=== PATIENT | male | born 1970 | race Caucasian/White ===

== ENCOUNTER 2017-12-26 08:30 | Emergency (ER) | payer OTHER ==
[~2017-12-26] VITALS: Ht 188 cm; Wt 132.0 kg
[~2017-12-26 08:30] MED LIST: ATR25 PO; LRT5 PO; PRED20TA PO
[2017-12-26 08:46] VITALS: PULSE 82; TEMP 36.7; O2SAT 97; Ht 188 cm; Wt 132.0 kg
[2017-12-26] MEDS ORDERED: ASPI81TA28 PO (08:58)
[2017-12-26] MEDS ORDERED: GLC/500 PO (08:58)
[2017-12-26] MEDS ORDERED: LISI-461 PO (08:58)
[2017-12-26] MEDS ORDERED: CRS/10 PO (08:58)
--- NOTE | 2017-12-26 09:17 | DIAGNOSTIC IMAGING REPORT ---
L KNEE 3 VIEWS CLINICAL HISTORY: left anterior knee pain gradually worsening x 2 weeks COMPARISON: None. DISCUSSION: Small osteophyte projecting from the superior aspect of the patella. No significant joint effusion. All cortical margins are well-corticated. Medial lateral compartments are intact. Patellofemoral joint is unremarkable. There is no evidence for soft tissue swelling. IMPRESSION: Small osteophyte projecting from the superior patella. Otherwise negative study. The above report was generated using voice recognition software. It may contain grammatical, syntax or spelling errors. Electronically signed by: Wild Adames M.D. 12/26/2017 9:16 AM Dictated Date/Time: 12/26/2017 9:15 AM
--- NOTE | 2017-12-26 09:34 | EMERGENCY ROOM VISIT NOTE ---
History Report prepared by Demetris: Elsie Haas Under the Supervision of: Dr. Sean Tang M.D. First contact with patient: 08:35 Chief Complaint: KNEEPAIN Stated Complaint: L KNEE PAIN History of Present Illness The patient is a 47 year old male who presents to the Emergency Room with complaints of worsening left knee pain for the past few weeks. 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 He is also on his hands and knees and states that he does where knee pads when he is on his knees. He states that his pain at rest is mild and rates his current pain as a 2/10 in severity. His pain worsens with standing, walking, kneeling, and moving. The patient reports some numbness occasionally going down into his lower leg. He has been using Advil and ice to control his pain. The patient denies any pain in his right knee. He denies weakness, fevers, chills, nausea, vomiting, back pain, urinary symptoms, and any previous injury to the left knee. Source of History: patient Onset: a few weeks ago Position: knee (left) Symptom Intensity: 2/10 Timing: worsening Modifying Factors (Worsening): movement, other (standing/walking/kneeling) Modifying Factors (Relieving): ibuprofen, ice Associated Symptoms: + numbness, No fevers, No chills, No nausea, No vomiting, No back pain, No urinary symptoms, No weakness Review of Systems See HPI for pertinent positives & negatives. A total of 6 systems reviewed and were otherwise negative. Past Medical & Surgical Medical Problems: (1) DM w/o complication type II (2) Hx of penicillin allergy (3) Obstructive sleep apnea, adult Family History No pertinent history stated. Social History Marital Status: Housing Status: lives with significant other Occupation Status: employed Current/Historical Medications Scheduled Aspirin (Aspirin Ec), 81 MG PO DAILY Lisinopril (Zestril), 10 MG PO DAILY Metformin Hcl (Glucophage), 500 MG PO BID Prednisone (Prednisone Tab), 0 PO DAILY Rosuvastatin Calcium (Crestor), 10 MG PO DAILY Allergies Coded Allergies: Penicillins (Verified Allergy, Mild, 11/12/09) Physical Exam Vital Signs Date Time Temp Pulse Resp B/P (MAP) Pulse Ox O2 Delivery O2 Flow Rate FiO2 12/26/17 10:18 146/88 12/26/17 08:46 36.7 82 18 134/93 97 Room Air Physical Exam GENERAL: Patient is well appearing and in minimal distress. EYES: No scleral icterus, unremarkable pupils. NECK: No masses appreciated, no meningismus, trachea is midline. RESPIRATORY: No dyspnea. Clear to auscultation and equal bilaterally. No wheeze , no rhonchi. CARDIOVASCULAR: Regular rate and rhythm. No murmurs, rubs, gallops appreciated. BACK: No midline tenderness, no CVA tenderness EXTREMITIES: Tender to palpation of anterior left knee, specifically over patella and patellar tendon. He has mild increase in pain with anterior drawer and varus stress testing but no laxity, no erythema, no effusion. NVI distally. NEUROLOGIC: Alert and oriented, no acute motor or sensory deficits, no focal weakness, cranial nerves grossly intact. SKIN: No rash, no jaundice, no diaphoresis. Medical Decision & Procedures ER Provider Diagnostic Interpretation: Radiology results and stated below per my review and radiologist interpretation: L KNEE 3 VIEWS CLINICAL HISTORY: left anterior knee pain gradually worsening x 2 weeks COMPARISON: None. DISCUSSION: Small osteophyte projecting from the superior aspect of the patella. No significant joint effusion. All cortical margins are well-corticated. Medial lateral compartments are intact. Patellofemoral joint is unremarkable. There is no evidence for soft tissue swelling. IMPRESSION: Small osteophyte projecting from the superior patella. Otherwise negative study. The above report was generated using voice recognition software. It may contain grammatical, syntax or spelling errors. Electronically signed by: Wild Adames M.D. 12/26/2017 9:16 AM Dictated Date/Time: 12/26/2017 9:15 AM Laboratory Results Test 12/26/17 08:56 Bedside Glucose 120 mg/dl (70-99) Laboratory results as reviewed by me. Medications Administered Medications (Trade) Dose Ordered Sig/Clare Route Start Time Stop Time Status Last Admin Dose Admin Prednisone (PredniSONE TAB) 60 mg NOW STAT PO 12/26/17 09:52 12/26/17 09:53 DC 12/26/17 10:11 60 MG ED Course 0839: The patient was evaluated in room B6. A complete history and physical exam was performed. 0946: I reassessed the patient at this time. He is feeling better and resting comfortably. I discussed the results and treatment plan with the patient. He will monitor his blood sugars closely. We discussed limiting NSAIDs. He declined any stronger pain medications. I answered all pertaining questions that he had. He expressed understanding and verbalized agreement. The patient will be discharged home. 0952: Prednisone 60 mg PO Medical Decision Differential: Fracture, Dislocation, Cellulitis, Septic Joint, Ligamentous Injury, Effusion, DVT, Bursitis, Tendonitis, amongst other pathologies entertained. 47 yr old male with left anterior knee pain with TTP. Exam consistent with tendonitis though bursitis could be issue as well. No septic joint nor significant effusion. No overlying cellulitis. Imaging without fx/dislocation though there is that bone spur. No evidence of DVT. Looks well and no distress otherwise. Declines pain meds which seems reasonable. BSG mildly elevated though not significantly. Seems reasonable treating PO steroids with close monitoring sugars. Reviewed plan to RTED if worsening other issues arise. Suggested follow up with Ortho for further evaluation. Medication Reconcilliation Current Medication List: was personally reviewed by me Blood Pressure Screening Patient's blood pressure: Elevated blood pressure Blood pressure disposition: Elevated BP felt to be situational Impression Primary Impression: Patellar tendinitis, left knee Scribe Attestation The scribe's documentation has been prepared under my direction and personally reviewed by me in its entirety. I confirm that the note above accurately reflects all work, treatment, procedures, and medical decision making performed by me. Departure Information Dispostion Home / Self-Care Prescriptions Prednisone (Prednisone Tab) 20 Mg Tab 0 PO DAILY, #17 TAB 3 TABS DAILY FOR 2 DAYS, THEN 2 TAB DAILY FOR 3 DAYS, THEN 1 TAB DAILY FOR 3 DAYS, Then 1/2 TAB DAILY FOR 3 DAYS. Prov: Sean Tang M.D. 12/26/17 Referrals Jeffry George M.D. (PCP) Alex Hernandez D.O. Forms HOME CARE DOCUMENTATION FORM, IMPORTANT VISIT INFORMATION Patient Instructions My [facility] Additional Instructions This is likely a Tendonitis but may have some Bursitis as well. Rest the knee and avoid lifting, stairs, and kneeling when possible. Monitor your blood sugars closely. Follow up with Orthopedics for further evaluation. Return if increased pain, swelling, fevers, redness or other concerns. Use Tylenol as needed for pain and Motrin sparingly.
[2017-12-26] MEDS ORDERED: PRED20TA2 PO (09:55)
[2017-12-26 10:18] VITALS: BP 146/88
== END 2017-12-26 10:19 | disposition home or self-care (01) ==
LOC: C.EDB 08:34
DX: M76.52 Patellar tendinitis, left knee (principal); M25.762 Osteophyte, left knee; E11.9 Type 2 diabetes mellitus without complications; G47.33 Obstructive sleep apnea (adult) (pediatric); Z79.899 Other long term (current) drug therapy; Z88.0 Allergy status to penicillin

== ENCOUNTER 2024-05-15 06:47 | Observation (INO) ==
--- OUTSIDE RECORDS SUMMARY | 2024-05-15 06:50 | External Medical Summary | Summary of Care ---
Author Name Unknown Organization [facility] Address [address] [place] [address] Phone [phone] Care Team Providers Care Floor Broker Name Role Phone Nacho Little MD Primary Care Provider [phone] Reason for Visit * Reason Comments eRx-Medication Refill Encounter Details Date Type Department Care Team (Late st Contact Info) Description 04/16/2024 Refill [facility] [address] [place] [address] Nacho Little MD [address] [place] [address] Dyslipidemia, goal LDL below 100 Allergies Active Allergy Reactions Criticality Noted Date Comments Penicillins 02/04/2001 documented as of this encounter (statuses as of 04/17/2024) Medications Medication Sig Dispensed Refills Start Date End Date Status ZuznowTOUCH ULTRA SYSTEM W/DEVICE KITIndications:DM type 2, goal A1c below 7 Use up to four times a day as directed 1 Kit 0 04/05/2011 Active ONETOUCH ULTRA BLUE STRPIndications:D M type 2, goal A1c below 7 Use up to four times a day as directed 100 Strip 11 04/05/2011 Active ONETOUCH ULTRASOFT LANCETS MISCIndications:D M type 2, goal A1c below 7 Use up to four times a day as directed 1 Box 11 04/05/2011 Active ASPIRIN 81 MG PO CHEW One chewable by mouth once a day with food 100 Tab 5 04/26/2011 Active metoprolol succinate XL (TOPROL XL) 50 MG TB24 Take 1 Tablet by mouth in the morning. 02/17/2020 Active Lisinopril 10 MG Oral Tablet (Prinivil) TAKE 1 TABLET DAILY 90 Tablet 1 04/02/2023 Active Ozempic (0.25 or 0.5 MG/DOSE) 2 MG/3ML Solution Pen-injector (Semaglutide(0.25 or 0.5MG/DOS)) INJECT 0.5 MG UNDER THE SKIN ONCE A WEEK 9 mL 1 02/12/2024 Active metFORMIN HCl ER 500 MG Oral Tablet Extended Release 24 Hour (Glucophage XR)Indications:Ty pe 2 diabetes mellitus with hemoglobin A1c goal of less than 7.0% (HCC) TAKE 2 TABLETS DAILY IN THE MORNING 02/12/2024 Active Allopurinol 100 MG Oral Tablet (Zyloprim)Indicat ions:Gout, unspecified cause, unspecified chronicity, unspecified site TAKE 1 TABLET IN THE MORNING 90 Tablet 1 03/04/2024 Active Rosuvastatin Calcium 10 MG Oral Tablet (Crestor)Indicati ons:Dyslipidemia, goal LDL below 100 TAKE 1 TABLET IN THE MORNING 90 Tablet 3 04/17/2024 Active Rosuvastatin Calcium 10 MG Oral Tablet (Crestor)Indicati ons:Dyslipidemia, goal LDL below 100 TAKE 1 TABLET IN THE MORNING 90 Tablet 3 04/24/2023 04/17/2024 Discontinued documented as of this encounter (statuses as of 04/17/2024) Active Problems Problem Noted Date Diagnosed Date Severe obstructive sleep apnea 04/07/2014 Overview: 11/2013 - CPAP 11 cwp 06/2013 HST - AHI 32/hr Care Plus HTN, goal below 140/90 02/24/2014 Dyslipidemia, goal LDL below 100 04/26/2011 Type 2 diabetes mellitus wit h hemoglobin A1c goal of less than 7.0% 04/05/2011 Overview: ICD-10 update of inactive term documented as of this encounter (statuses as of 04/17/2024) Resolved Problems Problem Noted Date Diagnosed Date Resolved Date Abnormal results of liver function studies 04/26/2011 03/06/2019 documented as of this encounter (statuses as of 04/17/2024) Immunizations Name Administration Dates Next Due Pneumococcal Conjugate Vaccine, 20-valent (Prevn ar20) 08/13/2023 Pneumococcal Polysaccharide PPV23 (Pneumovax) TDAP, Age 7 and older, IM (Adacel) 07/14/2011 documented as of this encounter Social History Tobacco Use Types Packs/Day Years Used Date Smoking Tobacco: Never Smokeless Tobacco: Never Alcohol Use Standard Drinks/Week Comments Yes 0 (1 standard drink = 0.6 oz pur e alcohol) occ PHQ-2 Answer Date Recorded PHQ Adult Total Score 0 02/12/2024 Hunger Vital Sign Answer Date Recorded Within the past 12 months, y ou worried that your food would run out before you got the money to buy more. Never true 02/12/20 24 Within the past 12 months, t he food you bought just didn't last and you didn't have money to get more. Never true 02/12/2024 Childcare Answer Date Recorded Do you feel overwhelmed with taking care of a child, family member or friend? No 02/12/2024 Does your family need help f inding childcare? (Household - for ages 0-17 years) Not on file 02/12/2024 Clothing Answer Date Recorded Have you been unable to get clothing when it was really needed? No 02/12/2024 Is your family able to get c lothes or diapers when needed? (Household - for ages 0-17 years) Not on file 02/12/2024 Personal Safety Answer Date Recorded Do you feel unsafe or have concerns for your saf ety? No 02/12/2024 Do you have concerns for you r family's safety? (Household - for ages 0-17 years) Not on file 02/12/2024 Utilities Answer Date Recorded Do you have trouble paying y our heating, water, or electric bill? No 02/12/2024 Is your family able to pay t he heat, water, or electric bill? (Household - for ages 0-17 years) Not on file 02/12/2024 Does your family have access to good internet? (Household - for ages 0-17 years) Not on file 02/12/2024 Employment Status Answer Date Recorded Are you unemployed or without regular income? No 02/12/2024 Does the household have a re gular source of income? (Household - for ages 0-17 years) Not on file 02/12/2024 Social Connections Answer Date Recorded How often do you feel lonely or isolated from th ose around you? Never 02/12/2024 Financial Resource Strain Answer Date R ecorded Do you have any trouble payi ng for your medications, or do you think you might in the future? No 02/12/2024 Does your family have troubl e paying for medicine? (Household - for ages 0-17 years) Not on file 02/12/2024 Transportation Needs Answer Date Record ed READ ONLY Do you have troubl e getting a ride to medical visits or work? Never True 02/12/2024 Does your family have a hard time getting a ride to doctors visits? (Household - for ages 0-17 years) Not on file 02/12/2024 Has lack of transportation k ept you from medical appointments, meetings, work, or from getting things needed for daily living? Check all that apply. (Adult - for ages 18 years and over) Not on file 02/12/2024 Do you (or your family) have trouble finding or paying for a ride (transportation)? (Household - for ages 0-17 years) Not on file 02/12/2024 Housing Stability Answer Date Recorded Do you currently live in a s helter or have no steady place to sleep at night? No 02/12/2024 READ ONLY Do you think you a re at risk of becoming homeless? No 02/12/2024 Does your family worry about paying for your home or becoming homeless? (Household - for ages 0-17 years) Not on file 0 02/12/2024 Are you homeless or worried that you might be in the future? (Adult - for ages 18 years and over) Not on file Are you (or your family) isabela eless or worried that you might be in the future? (Household - for ages 0-17 years) Not on file Food Insecurity Answer Date Recorded Do you need food for this week? No 02/12/2024 Are you able to get enough f ood for your family? (Household - for ages 0-17 years) Not on file 02/12/2024 Does your family need food t his week? (Household - for ages 0-17 years) Not on file 02/12/2024 Do you always have enough fo od for your family? (Household - for ages 0-17 years) Not on file 02/12/2024 Sex and Gender Information Value Date Recorded Sex Assigned at Male 02/12/2024 5:42 PM EDT Gender Identity Male 02/12/2024 5:42 PM EDT Sexual Orientation Straight 03/06/2019 7: 53 AM EDT Job Start Date Occupation Industry Not on file Not on file Not on file documented as of this encounter Miscellaneous Notes * Telephone Encounter - Narcisa Park RPh - 04/17/2024 7:59 AM EDTSigned Prescriptions: Disp Refills Rosuvastatin Calcium 10 MG Oral Tablet (Cr*90 Tab*3 Sig: TAKE 1TABLET IN THE MORNINGAuthorizing Provider: NACHO LITTLE User: NARCISA PARK--- documented in this encounter Plan of Treatment Upcoming Encounters Date Type Department Care Team (Late st Contact Info) Description 08/26/2024 6:20 PM EST Office Visit [facility] [address] [place] [address] Nacho Little MD [address] [place] [address] Scheduled Procedures Name Priority Associated Diagnoses Date/Ti me COLONOSCOPY FLEXIBLE PROXIMAL DIAGNOSTIC Recall History of colon polyps Health Maintenance Due Date Last Done Comments HIV Screening 1985 Hepatitis B Vaccine (1 of 3 - 19+ 3-dose series) 1989 Cologuard 2015 Fecal Occult Blood Test 2015 Sigmoidoscopy 2015 Zoster Vaccines (1 of 2) 2020 DTaP,Tdap,and Td Vaccines (2 - Td or Tdap) 07/14/2021 07/14/2011 B-12 01/19/2022 01/19/2021, 11/26/2019 Diabetic Foot Exam 02/15/2023 02/15/2022, 1 11/22/2019, 11/27/2019, Additional history exists COVID-19 Vaccine (3 - season) 2023 12/27/2020, 12/06/2020 Influenza Vaccine (FLU shot) (#1) 2024 HbA1c 08/02/2024 02/01/2024, 11/0 12/2022, 02/06/2023, Additional history exists Colonoscopy 11/24/2024 11/24/2019, 11/08, 11/13/2014, Additional history exists Colorectal Cancer Screening 11/24/2024 Diabetic Eye Exam 12/23/2024 12/24/2023, , 01/20/2021, Additional history exists Albumin/Creatinine Ratio 01/31/2025 024, 02/06/2023, 02/13/2022, Additional history exists GFR 01/31/2025 02/01/2024, 110 12/2022, 02/06/2023, Additional history exists Depression Screening 02/11/2025 02/12/2024 Lipid Panel 01/31/2029 02/01/2024, 050 11/2022, 2021, Additional history exists RETIRED - COLONOSCOPY-EVERY 5 YRS AGES 18-100 Discontinued 11/24/2019, 11/24/2019, 11/13/2014, Additional history exists Pneumococcal Vaccine: Pediatrics (0 to 5 Years) and At-Risk Patients (6 to 64 Years) Completed 08/13/2023, 04/05/2011 HPV (Gardasil) Vaccine Aged Out No lo nger eligible based on patient's age to complete this topic MENINGOCOCCAL (MENACTRA/MENVEO) Aged Out No longer eligible based on patient's age to complete this topic documented as of this encounter Medical Devices Not on filedocumented as of this encounter Visit Diagnoses Diagnosis Dyslipidemia, goal LDL below 100 Other and unspecified hyperlipidemia documented in this encounter Care Teams Floor Broker Relationship Specialty Start Date End Date Nacho Little MD [address] [place] [address] PCP - General Family Medicine 03/06/19 documented as of this encounter
--- NOTE | 2024-05-15 07:59 | Pre Anesthesia Assessment ---
Date of Service May 15, 2024 Pre Sedation Assessment Vital Signs Temp Pulse Resp BP Pulse Ox O2 Del Method 05/15/24 07:11 36.8 C 75 14 149/110 H 97 Room Air Cardiovascular + regular rate and + regular rhythm Respiratory + respiratory effort normal Pre-Sedation Airway Assessment Smoking Status: Never smoker Hx Sleep Apnea: No Hx Difficult Intubation: No Short, Thick Neck: No Thyromental Distance: > or= 3.5 Finger Breadths Oral Cavity: + WNL Mallampati Class: II ASA: ASA3 NPO Status Date of Last Intake of Fluids: 05/15/24 Time of Last Intake of Fluids: 06:00 Date of Last Intake of Solid Food: 05/14/24 Time of Last Intake of Solid Foods: 21:00 Procedure Planning Contraindications for Sedation: none Current Medications Reviewed: Yes Notes The planned sedation has been discussed with the patient. Informed Consent was obtained. I have identified the patient, determined the appropriateness of sedation and have assessed the patient immediately prior to the procedure. All medicine(s) and interventions are by my order.
--- NOTE | 2024-05-15 08:02 | History & Physical Report ---
Date of Service May 15, 2024 Assessment & Plan (1) Cardiomyopathy: (2) LBBB (left bundle branch block): Plan 1. Cardiomyopathy: The patient has a nonischemic cardiomyopathy and an ejection fraction less than 35%. This is despite guideline directed medical therapy. He has not had myocardial infarction in the past 40 days or revascularization in the past 90 days. He is [place] heart Association class 2-3 symptoms. Anticipated longevity greater than 1 year. Therefore a good candidate for an ICD as primary prevention against sudden cardiac . Also left bundle branch block morphology on his EKG with QRS duration greater than 150 milliseconds. This places him in a category of patients he would benefit from cardiac resynchronization therapy. Will plan a Bi V ICD. History of Present Illness Chief Complaint: cardiomyopathy Primary Care Provider: Jeffry George MD Patient is a 53 year old gentleman with a history of a nonischemic cardiomyopathy and left bundle-branch block. Due to persistent symptoms and persistently low EF he was advised to undergo implantation of biventricular ICD. Allergies Allergy/AdvReac Type Severity Reaction Status Date / Time Penicillins Allergy Unknown PT DOESN'T Verified 05/15/24 07:29 KNOW/RXN CHILD OR Home Medications Medication Instructions Recorded Confirmed Type aspirin 81 mg tablet,delayed 81 mg PO QAM 12/09/19 05/15/24 History release rosuvastatin 10 mg tablet (Crestor) 10 mg PO HS 12/09/19 05/15/24 History metformin 500 mg tablet 2,000 mg PO QAM 12/10/19 05/15/24 History coenzyme Q10 100 mg capsule 200 mg PO QAM 08/15/22 05/15/24 History (CoQ-10) semaglutide [Ozempic] subcut .WEEKLY 09/14/23 04/07/24 History lisinopril 40 mg tablet 40 mg PO QAM #90 tabs 10/11/23 05/15/24 Rx metoprolol succinate 200 mg 200 mg PO QAM #90 tabs 10/11/23 05/15/24 Rx tablet,extended release 24 hr Past Med/Surg History Problem List LBBB (left bundle branch block) Cardiomyopathy Scalp cyst (08/18/22) Scalp Cysts Excision Times 3 (2.5 cm, 1 cm, 1 cm) - Mookie Mistry DO FACS Encounter for pre-operative examination DM w/o complication type II (Chronic) Hx of penicillin allergy (Chronic) Hypokalemia (Acute) Hyponatremia (Acute) Dyspnea on exertion Sleep apnea CPAP Medical History History of colon polyps Pilar cyst of scalp CAD (coronary artery disease) Type 2 diabetes mellitus Dyslipidemia Cardiomyopathy LBBB (left bundle branch block) Hypertension Obstructive sleep apnea, adult Surgical History (Updated 09/04/22 @ 11:26 by Mookie Mistry DO, JOSE) History of cardiac cath 2-3 YR AGO/LBBB...5% [facility] ([facility]) NO STENT(S) Hx of colonoscopy Family History Father Diabetes Heart disease Stroke Sister Family history of colonic polyps Denies family history of Ovarian cancer Prostate cancer Breast cancer Colorectal cancer Lung disease Social History (Updated 07/21/22 @ 10:49 by Luz Maria Hernandez RN) Smoking Status: Never smoker Do You Dip or Chew Tobacco: No; Hx Alcohol Use: Yes Alcohol type: beer, wine and hard liquor Hx Substance Use: No Preferred Language: Georgian Communication Ability: Effective Windows Phone Developer Required: No Beliefs That Will Affect Care: None marital status: Current Living Situation: Spouse current occupational status: employed current occupation: self How many Children do You have: 1 Feels Safe at Home: Yes Diet: diabetic during the past year weight has: remained stable Assistive Devices: Contacts, CPAP and Glasses Review of Systems Review of Systems: Per HPI Physical Exam Physical Exam: The patient is alert and oriented. Mood and affect appeared normal. He answered all questions appropriately. HEENT: Pupils are equal and reactive to light and accommodation. Extraocular movements are intact. The sclerae are anicteric. Neuro: Cranial nerves intact Lungs: Normal respiratory effort Cardiac: Heart demonstrates a regular rate and rhythm. Pulses: The patient has palpable radial pulses bilaterally that are equal in intensity Extremities: There was no evidence of hypoperfusion. There is no cyanosis or clubbing. There is no edema. Skin: I did not appreciate any rashes on examination today. Results & Data Results & Data Vital Signs (Past 12 Hours) Vital Signs Temp Pulse Resp BP Pulse Ox O2 Del Method 05/15/24 07:11 36.8 C 75 14 149/110 H 97 Room Air
[2024-05-15] MEDS: VANCOMYCIN HCL 1000MG/20ML VIAL ONE (09:22)
[2024-05-15] MEDS: BUPIVACAINE 0.25% PF 30 ML VIAL ONE (09:22)
[2024-05-15] MEDS: WATER, STERILE FOR INJ 10 ML VIAL ONE (09:22)
[2024-05-15] MEDS: LIDOCAINE 1% LOCAL 20 ML VIAL ONE (09:22)
[2024-05-15] MEDS: ceFAZolin 330 MG/ML 1 GM VIAL ONE (09:23)
[2024-05-15] MEDS: MIDAZOLAM HCL 5 MG/ML 1 ML VIAL ONE (09:24)
[2024-05-15] MEDS: fentaNYL citrate PF 100 MCG/2 ML VIAL ONE ×2 (09:24→09:29)
[2024-05-15] MEDS: diphenhydrAMINE 50 MG/ML VIAL ONE (09:25)
--- NOTE | 2024-05-15 09:34 | Post Anesthesia Assessment ---
Date of Service May 15, 2024 Post Sedation Assessment Vital Signs Temp Pulse Resp BP Pulse Ox O2 Del Method 05/15/24 07:11 36.8 C 75 14 149/110 H 97 Room Air Recovery Score Activity: Moves 4 extremities Respiration: Deep Breath/Cough Circulation: +/-20% PreAnes Value Consciousness: Fully Awake Oxygen Saturation: > 92% On Room Air Discharge Sedation Level of Care: Fast Track Phase II Post Sedation Plan On clinical assessment, the patient appears to have tolerated the sedation without complications. Patient is recovering as anticipated. Patient will continue to be monitored by nursing and may be discharged when sedation discharge criteria are met per below protocol. Upon Completions of procedure up to 15 minutes continue every 5 minute vital signs and the P.A.R. score; then discharge to a Phase I or Fast Track to Phase II per the following guidelines: * Discharge Patient to appropriate Phase II area if PAR is 8 or greater or return to pre- procedure baseline. The post - procedure orders will be as directed. * If PAR score is less than 8 or not return to pre-procedure baseline then patient will follow Phase I monitoring till PAR is reached for Phase II. The Phase I may be done in procedure room or may call to secure a Phase I area. * If naloxone or flumazenil are used for reversal, hold in Phase I for continued monitoring from when last reversal dose was given for a minimum of 60 minutes or longer pending the nurse and/or physician discretion of patient condition before discharge to Phase II. Please call the Sedation Physician to re-evaluate and complete post-note for discharge to Phase II area. Do NOT discharge from procedure sedation or Phase 1 until post- sedation evaluation note is complete by procedure /sedation MD Sedation Discharge Instructions to be given to the patient at discharge to home.
--- NOTE | 2024-05-15 09:35 | Electrophysiology Report ---
Date of Service May 15, 2024 Electrophysiology Procedure Electrophysiology Procedure Report Procedure performed: Implantation of biventricular ICD Staff shadowgraph scale operator: Patrice Craft MD Indication: The patient is a 53-year-old gentleman with a longstanding history of a nonischemic cardiomyopathy. Has an ejection fraction less than 35% despite guideline medical therapy. [place] heart Association class 2 symptoms. No revascularization in the past 90 days normal cardial infarction past 40 days. He has anticipated longevity greater than 1 year. Based on this information was felt to be a good candidate for an ICD for primary prevention of sudden cardiac . Additionally, he has left bundle branch block morphology on his EKG with a QRS duration greater than 150 milliseconds. This puts him in a category patient to benefit from LAB REP. Procedure detail: The patient was informed the risks benefits and alternatives to the intended procedure. He understood which proceed. He was taken to the electrophysiology suite in a fasting state. Conscious sedation was administered per protocol and the patient was monitored electrocardiographically throughout today's procedure. Preoperative antibiotic was administered. The AA a left upper pectoral area was prepped and draped in usual sterile fashion. This area was anesthetized using subcutaneous menstruation of a lidocaine and Marcaine solution. Incision was made at this site and carried down the prepectoralis fascia using sharp dissection. Electrocautery was also employed for dissection as well as for hemostasis. Device pocket was fashioned tissues above the pectoralis muscle. The left axillary vein was subsequently accessed 3 times using modified Seldinger technique. Sheath was placed over guidewire at this site used facilitate passage of a ICD lead to the right ventricular apex under fluoroscopi c guidance. Adequate sensing threshold parameters were obtained prior to active fixation of this lead to the endocardial surface. The proximal portion lead was then sutured to prepectoralis fascia using nonabsorbable suture. A sheath was placed over an additional guidewire and used facilitate passage of a pacing lead to the right atrium under fluoroscopic guidance. Adequate sensing threshold p arameters were obtained prior to active fixation of this lead to the endocardial surface. The proximal portion lead was then sutured to prepectoralis fascia using nonabsorbable suture. A sheath was placed over the remaining guidewire and used facilitate passage of the guiding catheter for engagement of the coronary sinus. Once engaged limited coronary sinus venography who was performed in order to identify suitable target vessel. Once identified standard guidewire techniques were employed to deliver the pacing lead to the target vessel. Adequate sensing threshold parameters were obtained in the absence of diaphragmatic stimulation at high output were confirmed prior to removal of the guiding catheter. The proximal portion lead was then sutured to prepectoralis fascia using nonabsorbable suture. Device pocket was irrigated with antibiotic solution. The leads were then attached to the device device and leads were then placed in the pocket the pocket was closed in 3 layers of absorbable suture. Steri-Strips and sterile dressing were applied. The device was tested noninvasively prior inclusion procedure. The patient tolerated procedure well. There were no immediate complications. Equipment used: New pulse generator: Braille Operator EasyPaint model number [id number] serial number [id number] Right atrial lead: Braille Operator Medtronic model 5. 076 serial number [id number] Right ventricular lead: Braille Operator Medtronic model 6. 935 mm serial number [id number] Coronary sinus lead: Braille Operator Medtronic model number 4298 serial number [id number] Measured data: Right atrial lead: P-waves measured 1.9 mV. Pacing threshold 1.4 volts at 0.5 milliseconds with a pacing impedance of 637 Ohms Right ventricular lead: R-waves measured 11.2 mV. Pacing threshold 0.7 volts at 0.5 millisecond with a pacing impedance of 442 Impression: Successful implantation of biventricular ICD with coronary sinus lead [facility] Electrophysiology codes Pacing Procedure 1: Pacin BiV electrode w/Pacer / ICD implant, add on code ICD Procedure 1: ICD: 68879 Insert single or dual ICD system PG Moderate Sedation Codes Moderate Sedation Codes Procedure 1: Sedation/Anesthesia: 24974 Mod Sedation by the same physician;Init15 Min Child Age 5 & Up Procedure 2: Sedation/Anesthesia: 31140 Mod Sedation by the same physician; Ea [id number] Minutes
[2024-05-15] MEDS ORDERED: oxyCODONE HCL IR 5 MG TAB (IMMEDIATE RELEASE) PO PRN (09:36)
[2024-05-15] MEDS: ceFAZolin 1000MG 1,000 MG/7.5 ML SYR IV ONE (15:26)
[2024-05-15] MEDS: ACETAMINOPHEN 325 MG TAB PO PRN (16:59)
[2024-05-15] MEDS: ROSUVASTATIN CALCIUM 10 MG TAB PO SCH (20:06)
--- NOTE | 2024-05-16 07:06 | XRay Report ---
TWO VIEW CHEST CLINICAL HISTORY: Pacemaker implantation. FINDINGS: PA and lateral chest radiographs are compared to study dated 08/02/2022. A 3-lead cardiac A ICD has been placed. Leads project over the right atrial appendage, the right ventricle, and the briana nary sinus. The heart is mildly enlarged. The pulmonary vasculature is not congested. The lungs and pleural spaces are clear. There is no pneumothorax. The bony thorax appears intact. IMPRESSION: 1. A 3-lead cardiac AICD has been implanted as above. No pneumothorax is seen post procedure. 2. Mild cardiomegaly without radiographic evidence of congestive failure. 3. No airspace consolidation or pleural effusion is identified. ACT 112: Negative or not required by law. Electronically signed by: Ruben Mendoza M.D. 05/16/2024 7:05 AM
[2024-05-16 07:08] VITALS: BP 128/78; PULSE 70; RESP 18; TEMP 97.7; O2SAT 96
[2024-05-16] MEDS: ASPIRIN 81 MG ECTAB PO SCH (08:49)
[2024-05-16] MEDS: METOPROLOL SUCC 50MG EXT REL TAB PO SCH (08:49)
[2024-05-16] MEDS: lisinopril 40 MG TAB PO SCH (08:49)
--- NOTE | 2024-05-16 09:23 | Discharge Summary ---
Date of Service May 16, 2024 Admission HPI Per Admitting Provider Patient is a 53 year old gentleman with a history of a nonischemic cardiomyopathy and left bundle-branch block. Due to persistent symptoms and persistently low EF he was advised to undergo implantation of biventricular ICD. Principal Diagnosis Cardiomyopathy, left bundle-branch block Discharge Exam On the day of discharge patient was comfortable. Normal respiratory effort Device implant site well-healed without ecchymosis, hematoma or erythema. No drainage Discharge Data Allergies Allergy/AdvReac Type Severity Reaction Status Date / Time Penicillins Allergy Unknown PT DOESN'T Verified 05/15/24 07:29 KNOW/RXN CHILD OR Procedures Performed Operation Date: 05/15/24 08:00 Actual Procedures p ICD Insertion Single or Dual - Patrice Craft MD Ordered Studies 05/15/24 07:00 EP Lab Images for PACS ONCE Hospital Course (1) Cardiomyopathy: (2) LBBB (left bundle branch block): Plan On the day of admission the patient underwent implantation of a Medtronic biv entricular ICD. No immediate complications. One day of discharge she was feeling well. He was ambulatory without symptoms. No complication at the implant site. Device interrogation revealed normal function of all leads. Chest x-ray demonstrated stable lead position without pneumothorax. Total Time Total Time Spent Total Time Spent (In Minutes): 20 Discharge Plan Discharge Items Patient Disposition: Home - Self-Care Reason For Visit: Cardiomyopathy, ICD INSERTION Discharge Diagnosis: cardiomyopathy Activity: Resume your previous activity Lifting Comment: No lifting left arm above shoulder or behind neck for 6 weeks Bathing: Keep incision dry Bathing Comment: Keep wound dry and steri-strips intact until f/u Driving/Machine Use: Resume 1 day after discharge Non-emergency contact: Superintendent Refuse Disposal Call non-emergency contact if: you have any medication questions, your pain is worsening, you have a fever, your wound has increased redness and your wound has increased drainage Follow-up/Referrals: Jeffry George MD [Primary Care Provider] - Diet: Carb Consistent or DM2 and Heart Healthy Addtl Attending Provider Instructions: none Pending Studies at Discharge: No Stand-Alone Forms: My [employer], Smoking Cessation Medications and DC Order Prescriptions: Continued semaglutide [Ozempic] subcut .WEEKLY aspirin 81 mg tablet,delayed release (DR/EC) 81 mg PO QAM rosuvastatin [Crestor] 10 mg tablet 10 mg PO HS metformin 500 mg tablet 2,000 mg PO QAM lisinopril 40 mg tablet 40 mg PO QAM Qty: 90 3RF metoprolol succinate 200 mg tablet extended release 24 hr 200 mg PO QAM Qty: 90 3RF coenzyme Q10 [CoQ-10] 100 mg Capsule 200 mg PO QAM Discharge Orders: Discharge Order (Routine); Ordered 05/16/24 Ordered By: Patrice Craft Admission Data Admit Date/Time: 05/15/24 09:04 Attending Provider: Patrice Craft Admit Provider: Patrice Craft Primary Care Provider: Jeffry George Coding Level of Care Code 86003 IN/OBS DISCH 30 MIN/LESS Diagnoses Cardiomyopathy I42.9 LBBB (left bundle branch block) I44.7
--- NOTE | 2024-05-16 14:45 | Electrocardiogram Report ---
Test Reason : Blood Pressure : */* mmHG Vent. Rate : 72 BPM Atrial Rate : 72 BPM P-R Int : 170 ms QRS Dur : 144 ms QT Int : 452 ms P-R-T Axes : 62 -17 85 degrees QTcB Int : 494 ms Atrial-sensed ventricular-paced rhythm Abnormal ECG When compared with ECG of 07-Apr-2024 08:31, (unconfirmed) Electronic ventricular pacemaker has replaced Sinus rhythm Confirmed by Patrice Craft ([id number]) on 05/16/2024 2:44:43 PM Referred By: Patrice Craft Confirmed By: Patrice Craft
== END 2024-05-16 10:40 | disposition home or self-care (01) | DRG 277 ==
LOC: EP 06:47 → INTOOBSV 09:04 → 2S 09:04
PROC: EPB.ICD (2024-05-15 08:00)